=== PATIENT | male | born 1990 | race African-American/Black ===

== ENCOUNTER 2019-09-03 09:43 | Emergency (ER) | payer OTHER ==
[~2019-09-03] VITALS: Ht 190.5 cm; Wt 108.9 kg
[2019-09-03 09:47] VITALS: BP 151/83
[2019-09-03] MEDS ORDERED: FLONASE 0.05%50 MCG NARES (10:13)
== END 2019-09-03 10:21 | disposition home or self-care (01) ==
LOC: ER 09:43
DX: R05 Cough (principal); M79.18 Myalgia, other site